=== PATIENT | male | born 1990 | race African-American/Black ===

== ENCOUNTER 2016-07-09 23:35 | Emergency (ER) | payer SELFPAY ==
[~2016-07-09] VITALS: Ht 177.8 cm; Wt 90.7 kg
[2016-07-09 23:41] VITALS: BP 181/108
[2016-07-10 00:25] LABS: Basophils # (auto) 0.4 uL; Eosinophils # (auto) 0.1 uL; Eosinophils % (auto) 0.5 % (0.0-7.0); Lymphocytes % (auto) 7.1 % (10.0-50.0); Monocytes # (auto) 0.3 uL; Monocytes % (auto) 2.5 % (0.0-12.0); Neutrophils # (auto) 12.2 uL; Neutrophils % (auto) 86.9 % (37.0-80.0)
[2016-07-10 00:26] LABS: Hematocrit 49.5 % (41.0-53.0); Hemoglobin 15.9 g/dL (13.5-17.5); Mean Corpuscular Hemoglobin 27.3 pg (28.0-32.0); Mean Corpuscular Hgb Conc. 32.1 g/dL (32.0-36.0); Mean Corpuscular Volume 84.9 fL (80.0-100.0); Mean Platelet Volume 8.3 fL (7.4-10.4); Platelet Count (auto) 374 10^3/uL (140-450); Red Cell Distribution Width 13.4 % (11.6-16.0)
[2016-07-10 00:29] LABS: Albumin 4.9 g/dL (3.4-5.0); BUN/Creatinine Ratio 8.2
[2016-07-10 00:31] LABS: Bilirubin, Total 0.6 mg/dL (0.2-1.0); Total Protein 9.1 g/dL (6.4-8.2)
== END 2016-07-10 01:15 | disposition left against medical advice (07) ==
LOC: ER 23:35
DX: R10.9 Unspecified abdominal pain (principal); Z53.21 Procedure and treatment not carried out due to patient leaving prior to being seen by health care provider
CPT/HCPCS: 36415; 80053; 85025

== ENCOUNTER 2019-05-21 03:23 | Emergency (ER) | payer MEDICAID, OTHER ==
[~2019-05-21] VITALS: Ht 182.9 cm; Wt 113.4 kg
[2019-05-21] MEDS ORDERED: ONDANSETRON HCL 4 MG/2 ML VIAL IV ONE (08:00)
[2019-05-21] MEDS ORDERED: HYDROmorphone HCL 2 MG/ML VL IV ONE (08:00)
[2019-05-21 10:03] VITALS: BP 143/85
== END 2019-05-21 10:25 | disposition short-term general hospital (02) ==
LOC: EDUNIT# 03:23 → ER 03:23 → EDBD 03:23 → ER 10:25
DX: S12.101A Unspecified nondisplaced fracture of second cervical vertebra, initial encounter for closed fracture (principal); F17.210 Nicotine dependence, cigarettes, uncomplicated; F12.10 Cannabis abuse, uncomplicated; S86.912A Strain of unspecified muscle(s) and tendon(s) at lower leg level, left leg, initial encounter; V47.5XXA Car driver injured in collision with fixed or stationary object in traffic accident, initial encounter; Y93.89 Activity, other specified; Y99.8 Other external cause status; Y92.410 Unspecified street and highway as the place of occurrence of the external cause
CPT/HCPCS: 36415; 70450; 72125; 73590; 80320; 96374; 96375; 99285; J1170; J2405; L0120